=== PATIENT | female | born 1970 | race Hispanic/Latino ===

== ENCOUNTER 2017-08-05 17:26 | Emergency (ER) | payer SELFPAY ==
[~2017-08-05 17:26] MED LIST: AMIDATE IV ONE; VERSED IV ONE; ZEMURON IV ONE
[2017-08-05] MEDS ORDERED: KEPPRA 1,000 MG/NS 0.75% 100ML 1,000 MG/100 ML BAG IV ONE ×2 (17:30→20:23)
[2017-08-05] MEDS ORDERED: NACL 0.9% 1000 ML 1,000 ML ONE (17:30)
[2017-08-05] MEDS ORDERED: AMIDATE IV ONE (17:37)
[2017-08-05] MEDS ORDERED: VASELINE LIP THERAPY TP PRN (17:37)
[2017-08-05] MEDS ORDERED: ARTIFICIAL TEARS OPHTH OINT OU PRN (17:37)
[2017-08-05] MEDS ORDERED: XYLOCAINE CARDIAC IV ONE ×2 (17:37→19:40)
[2017-08-05] MEDS ORDERED: ZEMURON IV ONE (17:37)
[2017-08-05] MEDS ORDERED: KEPPRA 1,000 MG in NACL 0.9% 100 ML IV STA (17:37)
--- NOTE | 2017-08-05 17:39 | Emergency Department Report ---
ED Altered Mental Status HPI - General Chief Complaint: Altered Mental Status Stated Complaint: DIFFICULTY BREATHING Time Seen by Provider: 08/05/17 17:34 Source: EMS (verbal report received from EMS.ems notes not available at time of chart dictation), old records reviewed Mode of arrival: Stretcher Limitations: Altered Mental Status, Physical Limitation - History of Present Illness Initial Comments: This is a 46-year-old female who is previously unknown to this provider. History is entirely obtained from EMS. We do not know a past medical history she has. No family or friends were available for corroborating information. Her last known well time is not known. Apparently EMS was contacted for altered mental status and possible convulsive activity. The patient arrives to the ER altered, not protecting her airway, with decerebrate posturing, and was intubated for airway protection. Prior to intubation, she was placed on a nasal cannula, received bag valve mask ventilation, premedicated with 100 mg of lidocaine, introduced with 20 mg of etomidate, and paralyzed with 100 mg of rocuronium. Given undifferentiated altered mental status and concern for possible posterior circulation event, the patient was called overhead as a code stroke. A noncontrast CT scan of the brain was negative. A CT angiogram of the head and neck did not demonstrate any significant large vessel lesions that would require emergent endovascular intervention. Patient ruled in for systemic inflammatory response syndrome criteria by of heart rate greater than 90, white count of 16. Also had a low-grade temperature orally. In addition, a postintubation x-ray suggests pneumonia. Pneumonitis also a possibility. Therefore, the patient was emergently and administrative consented by myself for spinal tap. Patient also medicated with ceftriaxone, vancomycin and acyclovir. Decadron also ordered. Given concern for status epilepticus, meningitis, the patient will be transferred to [facility] for neuro critical care. This hospital does not have neurology, neurosurgery or neuro critical care. The patient has an emergency medical condition which cannot be definitively managed at this hospital. She will therefore be transferred for definitive care. There is no family available for consent for transfer, intubation or spinal tap. However, given the emergent nature of the patient's conditions, it is clear that diagnostics an transfer needed to performed in an expedient fashion in the patient's best interest. Given her last known well time is unknown, and broad differential diagnosis, as well as negative CT angiogram, the patient does not merit tPA. MD Complaint: altered mental status, confusion, decreased responsiveness -: unknown Severity: severe Associated Symptoms: other (the patient is altered, and nonverbal) - Related Data Allergies Allergy/AdvReac Type Severity Reaction Status Date / Time No Known Allergies Allergy Unverified 08/05/17 17:55 ED Review of Systems ROS: Stated complaint: DIFFICULTY BREATHING Other details as noted in HPI Comment: Unobtainable due to pts medical conditions ED Physical Exam - General Limitations: Altered Mental Status, Physical Limitation General appearance: obtunded - Head Head exam: Present: atraumatic, normocephalic - Eye Eye exam: Present: normal appearance. Absent: PERRL (the pupils are 2 mm bilaterally, they're not asymmetric and they are minimally reactive to light.) - ENT ENT exam: Present: normal orophraynx, mucous membranes moist - Neck Neck exam: Present: normal inspection. Absent: tenderness - Respiratory Respiratory exam: Absent: respiratory distress - Cardiovascular Cardiovascular Exam: Present: normal rhythm, tachycardia, normal heart sounds. Absent: systolic murmur, diastolic murmur, rubs, gallop - GI/Abdominal GI/Abdominal exam: Present: soft, normal bowel sounds. Absent: distended, tenderness, guarding, rebound, rigid, pulsatile mass - Rectal Rectal exam: Present: normal inspection - External exam: Present: normal external exam - Extremities Exam Extremities exam: Present: normal inspection. Absent: tenderness, pedal edema, joint swelling - Back Exam Back exam: Present: normal inspection. Absent: tenderness, CVA tenderness (R), paraspinal tenderness, vertebral tenderness - Neurological Exam Neurological exam: Present: altered, other (prior to intubation, the patient is moving 4 extremities. Patient also noted to have decerebrate posturing) - Psychiatric Psychiatric exam: Present: normal affect, normal mood - Skin Skin exam: Present: warm, dry, intact, normal color. Absent: rash - Assessment Assessment Interval: Baseline - Level of Consciousness 1a. Level of Consciousness: responds reflex/autonomic - LOC Questions 1b. LOC Questions: answers no questions correctly - LOC Command 1c. LOC Commands: performs no tasks correctly - Best Gaze 2. Best Gaze: forced deviation (Unable to assess) - Visual 3. Visual: bilateral hemianopia (Unable to assess) - Facial Palsy 4. Facial Palsy: complete paralysis (Unable to assess) - Motor Arm 5b. Motor Arm Right: some gravity effort 5a. Motor Arm Left: some gravity effort - Motor Leg 6a. Motor Leg Left: some gravity effort 6b. Motor Leg Right: some gravity effort - Limb Ataxia 7. Limb Ataxia: amputation (Unable to assess) - Sensory 8. Sensory: severe/total sensory loss (Unable to assess) - Best Language 9. Best Language: mute/global aphasia (Unable to assess) - Dysarthria 10. Dysarthria: intubated or other barrier - Extinction and Inattention 11. Extinction/Inattention: profound inattention ED Course Vital Signs 08/05/17 08/05/17 08/05/17 16:26 17:20 17:26 Temperature Pulse Rate 107 H Respiratory 16 13 16 Rate Blood Pressure 134/81 Blood Pressure [Left] O2 Sat by Pulse 100 Oximetry 08/05/17 08/05/17 08/05/17 17:30 17:36 17:45 Temperature Pulse Rate 111 H 114 H 104 H Respiratory 12 17 20 Rate Blood Pressure 134/81 167/107 Blood Pressure 174/110 [Left] O2 Sat by Pulse 100 100 100 Oximetry 08/05/17 08/05/17 08/05/17 17:47 18:00 18:02 Temperature Pulse Rate 104 H 111 H 115 H Respiratory 6 L 16 16 Rate Blood Pressure 134/81 167/107 Blood Pressure 154/94 [Left] O2 Sat by Pulse 87 100 100 Oximetry 08/05/17 08/05/17 08/05/17 18:06 18:10 18:15 Temperature Pulse Rate 115 H 119 H 113 H Respiratory 16 16 16 Rate Blood Pressure 167/107 167/107 174/110 Blood Pressure [Left] O2 Sat by Pulse 100 100 100 Oximetry 08/05/17 08/05/17 08/05/17 18:20 18:26 18:30 Temperature 99.2 F Pulse Rate 108 H 110 H 103 H Respiratory 16 16 16 Rate Blood Pressure 174/110 174/110 154/94 Blood Pressure 147/93 [Left] O2 Sat by Pulse 100 100 100 Oximetry 08/05/17 08/05/17 08/05/17 18:36 18:40 18:45 Temperature Pulse Rate 103 H 102 H 103 H Respiratory 16 16 16 Rate Blood Pressure 147/93 147/93 122/78 Blood Pressure [Left] O2 Sat by Pulse 98 98 98 Oximetry 08/05/17 08/05/17 08/05/17 18:50 18:56 19:00 Temperature Pulse Rate 101 H 101 H 101 H Respiratory 16 16 16 Rate Blood Pressure 122/78 122/78 122/78 Blood Pressure [Left] O2 Sat by Pulse 97 98 Oximetry 08/05/17 08/05/17 08/05/17 19:06 19:10 19:15 Temperature Pulse Rate 100 H 100 H 99 H Respiratory 16 16 16 Rate Blood Pressure 122/76 122/76 116/74 Blood Pressure [Left] O2 Sat by Pulse 98 98 98 Oximetry 08/05/17 08/05/17 08/05/17 19:20 19:26 19:30 Temperature Pulse Rate 99 H 98 H 97 H Respiratory 16 16 16 Rate Blood Pressure 116/74 116/74 116/74 Blood Pressure [Left] O2 Sat by Pulse 98 98 99 Oximetry 08/05/17 08/05/17 08/05/17 19:36 19:40 19:45 Temperature Pulse Rate 97 H 99 H 99 H Respiratory 16 16 16 Rate Blood Pressure 122/77 122/77 116/78 Blood Pressure [Left] O2 Sat by Pulse 99 99 99 Oximetry 08/05/17 08/05/17 08/05/17 19:50 19:56 20:00 Temperature Pulse Rate 96 H 111 H 101 H Respiratory 19 22 16 Rate Blood Pressure 116/78 122/78 100/59 Blood Pressure [Left] O2 Sat by Pulse 98 94 97 Oximetry 08/05/17 08/05/17 08/05/17 20:06 20:10 20:15 Temperature Pulse Rate 99 H 99 H 98 H Respiratory 16 16 16 Rate Blood Pressure 116/78 116/78 85/48 Blood Pressure [Left] O2 Sat by Pulse 98 98 98 Oximetry 08/05/17 08/05/17 08/05/17 20:20 20:26 20:29 Temperature Pulse Rate 95 H 93 H 91 H Respiratory 16 16 Rate Blood Pressure 85/48 85/48 Blood Pressure [Left] O2 Sat by Pulse 99 98 99 Oximetry - Intubation Time Out Performed: Yes Sedative: Etomidate Mg Given: 20 Paralytic: Rocuronium Mg Given: 100 Laryngoscope: Keyur Size: 3 ET Tube Size: 7.5 Tube Secured Location: teeth Tube Placement Confirmation: visualized tube passing t, equal breath sounds bilat, no breath sounds over epi, confirmation by capnometr Patient Tolerated Procedure: well Intubation Complications: none Additional Comments: Prior to intubation, placed on a nasal cannula at 15 L/m. The patient received [id number] ventilation. Endo tracheal tube is placed. - Lumbar Puncture Consent Obtained: emergent situation Time Out Performed: Yes Indication for Procedure: fever work up, change in mental status Patient Position: other (procedure started in right lateral decubitus position, unsuccessful, then transferred to sitting upright, leaning forward.) Skin Prep: Povidone-Iodine 1% Local Anesthetic Used: Lidocaine 1% Amount of anesthesia used (mls): 10 Spinal Needle Gauge: 20G Spinal Needle Length: 1.5in Interspace Used: L4-L5 Fluid Initially Obtained: cloudy Complications: traumatic tap, bleeding Patient Tolerated Procedure: well - Lab Data Result diagrams: 08/05/17 17:45 08/05/17 17:45 Lab Results 08/05/17 08/05/17 08/05/17 Range/Units 17:45 17:45 17:45 WBC 16.0 H (4.5-11.0) K/mm3 RBC 4.63 (3.65-5.03) M/mm3 Hgb 14.6 H (10.1-14.3) gm/dl Hct 44.7 H (30.3-42.9) % MCV 97 (79-97) fl MCH 32 (28-32) pg MCHC 33 (30-34) % RDW 13.1 L (13.2-15.2) % Plt Count 143 (140-440) K/mm3 Lymph % (Auto) 6.5 L (13.4-35.0) % Sanders % (Auto) 2.6 (0.0-7.3) % Eos % (Auto) 0.7 (0.0-4.3) % Baso % (Auto) 0.3 (0.0-1.8) % Lymph # 1.0 L (1.2-5.4) K/mm3 Sanders # 0.4 (0.0-0.8) K/mm3 Eos # 0.1 (0.0-0.4) K/mm3 Baso # 0.0 (0.0-0.1) K/mm3 Seg Neutrophils % 89.9 H (40.0-70.0) % Seg Neutrophils # 14.3 H (1.8-7.7) K/mm3 PT 13.4 (12.2-14.9) Sec. INR 0.97 (0.87-1.13) APTT 25.4 (24.2-36.6) Sec. Thrombin Time 15.0 L (15.1-19.6) Sec. Sodium (137-145) mmol/L Potassium (3.6-5.0) mmol/L Chloride (98-107) mmol/L Carbon Dioxide (22-30) mmol/L Anion Gap mmol/L BUN (7-17) mg/dL Creatinine (0.7-1.2) mg/dL Estimated GFR ml/min BUN/Creatinine Ratio % Glucose (65-100) mg/dL Calcium (8.4-10.2) mg/dL Total Bilirubin (0.1-1.2) mg/dL AST (5-40) units/L ALT (7-56) units/L Alkaline Phosphatase (35-129) units/L Total Creatine Kinase 272 H (30-135) units/L CK-MB (CK-2) 5.2 H (0.0-4.0) ng/mL CK-MB (CK-2) Rel Index 1.9 (0-4) Troponin T 0.032 H (0.00-0.029) ng/mL Total Protein (6.3-8.2) g/dL Albumin (3.9-5) g/dL Albumin/Globulin Ratio % Triglycerides 228 H (2-149) mg/dL Cholesterol 235 H (50-199) mg/dL LDL Cholesterol Direct 157 H (50-130) mg/dL HDL Cholesterol 63 H (40-59) mg/dL Cholesterol/HDL Ratio 3.73 % HCG, Quant (0-4) mIU/mL Urine Color (Yellow) Urine Turbidity (Clear) Urine pH (5.0-7.0) Ur Specific [place] (1.003-1.030) Urine Protein (Negative) mg/dL Urine Glucose (UA) (Negative) mg/dL Urine Ketones (Negative) mg/dL Urine Blood (Negative) Urine Nitrite (Negative) Urine Bilirubin (Negative) Urine Urobilinogen (<2.0) mg/dL Ur Leukocyte Esterase (Negative) Urine WBC (Auto) (0.0-6.0) /HPF Urine RBC (Auto) (0.0-6.0) /HPF Urine Bacteria (Auto) (Negative) /HPF Hyaline Casts /LPF Salicylates (2.8-20.0) mg/dL Acetaminophen (10.0-30.0) ug/mL Plasma/Serum Alcohol (0-0.07) % 08/05/17 08/05/17 08/05/17 Range/Units 17:45 17:45 17:45 WBC (4.5-11.0) K/mm3 RBC (3.65-5.03) M/mm3 Hgb (10.1-14.3) gm/dl Hct (30.3-42.9) % MCV (79-97) fl MCH (28-32) pg MCHC (30-34) % RDW (13.2-15.2) % Plt Count (140-440) K/mm3 Lymph % (Auto) (13.4-35.0) % Sanders % (Auto) (0.0-7.3) % Eos % (Auto) (0.0-4.3) % Baso % (Auto) (0.0-1.8) % Lymph # (1.2-5.4) K/mm3 Sanders # (0.0-0.8) K/mm3 Eos # (0.0-0.4) K/mm3 Baso # (0.0-0.1) K/mm3 Seg Neutrophils % (40.0-70.0) % Seg Neutrophils # (1.8-7.7) K/mm3 PT (12.2-14.9) Sec. INR (0.87-1.13) APTT (24.2-36.6) Sec. Thrombin Time (15.1-19.6) Sec. Sodium 137 (137-145) mmol/L Potassium 4.5 (3.6-5.0) mmol/L Chloride 91.8 L (98-107) mmol/L Carbon Dioxide 25 (22-30) mmol/L Anion Gap 25 mmol/L BUN 7 (7-17) mg/dL Creatinine 0.9 (0.7-1.2) mg/dL Estimated GFR > 60 ml/min BUN/Creatinine Ratio 8 % Glucose 438 H (65-100) mg/dL Calcium 8.5 (8.4-10.2) mg/dL Total Bilirubin 1.50 H (0.1-1.2) mg/dL AST 163 H (5-40) units/L ALT 140 H (7-56) units/L Alkaline Phosphatase 110 (35-129) units/L Total Creatine Kinase 271 H (30-135) units/L CK-MB (CK-2) (0.0-4.0) ng/mL CK-MB (CK-2) Rel Index (0-4) Troponin T (0.00-0.029) ng/mL Total Protein 7.3 (6.3-8.2) g/dL Albumin 4.6 (3.9-5) g/dL Albumin/Globulin Ratio 1.7 % Triglycerides (2-149) mg/dL Cholesterol (50-199) mg/dL LDL Cholesterol Direct (50-130) mg/dL HDL Cholesterol (40-59) mg/dL Cholesterol/HDL Ratio % HCG, Quant (0-4) mIU/mL Urine Color (Yellow) Urine Turbidity (Clear) Urine pH (5.0-7.0) Ur Specific [place] (1.003-1.030) Urine Protein (Negative) mg/dL Urine Glucose (UA) (Negative) mg/dL Urine Ketones (Negative) mg/dL Urine Blood (Negative) Urine Nitrite (Negative) Urine Bilirubin (Negative) Urine Urobilinogen (<2.0) mg/dL Ur Leukocyte Esterase (Negative) Urine WBC (Auto) (0.0-6.0) /HPF Urine RBC (Auto) (0.0-6.0) /HPF Urine Bacteria (Auto) (Negative) /HPF Hyaline Casts /LPF Salicylates (2.8-20.0) mg/dL Acetaminophen (10.0-30.0) ug/mL Plasma/Serum Alcohol < 0.01 (0-0.07) % 08/05/17 08/05/17 08/05/17 Range/Units 17:45 17:45 17:45 WBC (4.5-11.0) K/mm3 RBC (3.65-5.03) M/mm3 Hgb (10.1-14.3) gm/dl Hct (30.3-42.9) % MCV (79-97) fl MCH (28-32) pg MCHC (30-34) % RDW (13.2-15.2) % Plt Count (140-440) K/mm3 Lymph % (Auto) (13.4-35.0) % Sanders % (Auto) (0.0-7.3) % Eos % (Auto) (0.0-4.3) % Baso % (Auto) (0.0-1.8) % Lymph # (1.2-5.4) K/mm3 Sanders # (0.0-0.8) K/mm3 Eos # (0.0-0.4) K/mm3 Baso # (0.0-0.1) K/mm3 Seg Neutrophils % (40.0-70.0) % Seg Neutrophils # (1.8-7.7) K/mm3 PT (12.2-14.9) Sec. INR (0.87-1.13) APTT (24.2-36.6) Sec. Thrombin Time (15.1-19.6) Sec. Sodium (137-145) mmol/L Potassium (3.6-5.0) mmol/L Chloride (98-107) mmol/L Carbon Dioxide (22-30) mmol/L Anion Gap mmol/L BUN (7-17) mg/dL Creatinine (0.7-1.2) mg/dL Estimated GFR ml/min BUN/Creatinine Ratio % Glucose (65-100) mg/dL Calcium (8.4-10.2) mg/dL Total Bilirubin (0.1-1.2) mg/dL AST (5-40) units/L ALT (7-56) units/L Alkaline Phosphatase (35-129) units/L Total Creatine Kinase (30-135) units/L CK-MB (CK-2) (0.0-4.0) ng/mL CK-MB (CK-2) Rel Index (0-4) Troponin T (0.00-0.029) ng/mL Total Protein (6.3-8.2) g/dL Albumin (3.9-5) g/dL Albumin/Globulin Ratio % Triglycerides (2-149) mg/dL Cholesterol (50-199) mg/dL LDL Cholesterol Direct (50-130) mg/dL HDL Cholesterol (40-59) mg/dL Cholesterol/HDL Ratio % HCG, Quant < 2 (0-4) mIU/mL Urine Color (Yellow) Urine Turbidity (Clear) Urine pH (5.0-7.0) Ur Specific [place] (1.003-1.030) Urine Protein (Negative) mg/dL Urine Glucose (UA) (Negative) mg/dL Urine Ketones (Negative) mg/dL Urine Blood (Negative) Urine Nitrite (Negative) Urine Bilirubin (Negative) Urine Urobilinogen (<2.0) mg/dL Ur Leukocyte Esterase (Negative) Urine WBC (Auto) (0.0-6.0) /HPF Urine RBC (Auto) (0.0-6.0) /HPF Urine Bacteria (Auto) (Negative) /HPF Hyaline Casts /LPF Salicylates < 0.3 L (2.8-20.0) mg/dL Acetaminophen < 5.0 L (10.0-30.0) ug/mL Plasma/Serum Alcohol (0-0.07) % 05/25/18 Range/Units Unknown WBC (4.5-11.0) K/mm3 RBC (3.65-5.03) M/mm3 Hgb (10.1-14.3) gm/dl Hct (30.3-42.9) % MCV (79-97) fl MCH (28-32) pg MCHC (30-34) % RDW (13.2-15.2) % Plt Count (140-440) K/mm3 Lymph % (Auto) (13.4-35.0) % Sanders % (Auto) (0.0-7.3) % Eos % (Auto) (0.0-4.3) % Baso % (Auto) (0.0-1.8) % Lymph # (1.2-5.4) K/mm3 Sanders # (0.0-0.8) K/mm3 Eos # (0.0-0.4) K/mm3 Baso # (0.0-0.1) K/mm3 Seg Neutrophils % (40.0-70.0) % Seg Neutrophils # (1.8-7.7) K/mm3 PT (12.2-14.9) Sec. INR (0.87-1.13) APTT (24.2-36.6) Sec. Thrombin Time (15.1-19.6) Sec. Sodium (137-145) mmol/L Potassium (3.6-5.0) mmol/L Chloride (98-107) mmol/L Carbon Dioxide (22-30) mmol/L Anion Gap mmol/L BUN (7-17) mg/dL Creatinine (0.7-1.2) mg/dL Estimated GFR ml/min BUN/Creatinine Ratio % Glucose (65-100) mg/dL Calcium (8.4-10.2) mg/dL Total Bilirubin (0.1-1.2) mg/dL AST (5-40) units/L ALT (7-56) units/L Alkaline Phosphatase (35-129) units/L Total Creatine Kinase (30-135) units/L CK-MB (CK-2) (0.0-4.0) ng/mL CK-MB (CK-2) Rel Index (0-4) Troponin T (0.00-0.029) ng/mL Total Protein (6.3-8.2) g/dL Albumin (3.9-5) g/dL Albumin/Globulin Ratio % Triglycerides (2-149) mg/dL Cholesterol (50-199) mg/dL LDL Cholesterol Direct (50-130) mg/dL HDL Cholesterol (40-59) mg/dL Cholesterol/HDL Ratio % HCG, Quant (0-4) mIU/mL Urine Color Yellow (Yellow) Urine Turbidity Clear (Clear) Urine pH 5.0 (5.0-7.0) Ur Specific [place] 1.012 (1.003-1.030) Urine Protein <15 mg/dl (Negative) mg/dL Urine Glucose (UA) >=500 (Negative) mg/dL Urine Ketones Neg (Negative) mg/dL Urine Blood Sm (Negative) Urine Nitrite Neg (Negative) Urine Bilirubin Neg (Negative) Urine Urobilinogen < 2.0 (<2.0) mg/dL Ur Leukocyte Esterase Neg (Negative) Urine WBC (Auto) 2.0 (0.0-6.0) /HPF Urine RBC (Auto) 2.0 (0.0-6.0) /HPF Urine Bacteria (Auto) 1+ (Negative) /HPF Hyaline Casts 1 /LPF Salicylates (2.8-20.0) mg/dL Acetaminophen (10.0-30.0) ug/mL Plasma/Serum Alcohol (0-0.07) % - Radiology Data Radiology results: report reviewed, image reviewed Noncontrast CT scan of the brain is negative for acute disease. The CT angiogram of the head and neck demonstrates no large clots. X-ray of the chest demonstrates bilateral pneumonitis versus pneumonia with the endotracheal tube 1.3 cm from the matthew. The endotracheal tube was retracted 2 cm by respiratory therapy at my direction. - Core Measures Measure Exclusions: not indicated - NEXUS Criteria Focal neurological deficit present: No Midline spinal tenderness present: No Altered level of consciousness: Yes (no history of trauma) Intoxication present: No Distracting injury present: No NEXUS results: C-Spine cannot be cleared clinically by these results. Imaging is required. Critical Care Time: Yes Critical care time in (mins) excluding proc time.: 60 Critical care attestation.: If time is entered above; I have spent that time in minutes in the direct care of this critically ill patient, excluding procedure time. ED Disposition Clinical Impression: SIRS (systemic inflammatory response syndrome), Encephalopathy acute [id number] IP Is pt being admited?: No Does the pt Need Aspirin: No Condition: Critical Referrals: PRIMARY CARE, [Primary Care Provider] - 3-5 Days
[2017-08-05] MEDS ORDERED: NACL 0.9% 500 ML IV SCH (18:00)
[2017-08-05] MEDS ORDERED: VERSED IV NR (18:00)
[2017-08-05] MEDS ORDERED: fentaNYL DRIP Premix 2,000 MCG/100 ML BAG IV SCH (18:00)
[2017-08-05] MEDS ORDERED: DIPRIVAN 10 MG/ML 1,000 MG/100 ML BOTTLE IV SCH (18:00)
[2017-08-05 18:07] LABS: Basophils % (Auto) 0.3 % (0.0-1.8); Eosinophils # (Auto) 0.1 K/mm3 (0.0-0.4); Eosinophils % (Auto) 0.7 % (0.0-4.3); Hematocrit 44.7 % (30.3-42.9); Hemoglobin 14.6 gm/dl (10.1-14.3); Lymphocytes % (Auto) 6.5 % (13.4-35.0); Mean Corpuscular HGB Conc 33 % (30-34); Mean Corpuscular Hemoglobin 32 pg (28-32); Mean Corpuscular Volume 97 fl (79-97); Monocytes # (Auto) 0.4 K/mm3 (0.0-0.8); Monocytes % (Auto) 2.6 % (0.0-7.3); Platelet Count 143 K/mm3 (140-440); Red Blood Count 4.63 M/mm3 (3.65-5.03); Red Cell Distribution Width 13.1 % (13.2-15.2)
[2017-08-05 18:18] LABS: INR 0.97 (0.87-1.13)
[2017-08-05 18:19] LABS: Partial Thromboplastin Time 25.4 Sec. (24.2-36.6)
[2017-08-05 18:33] LABS: Alanine Aminotransferase 140 units/L (7-56); Albumin 4.6 g/dL (3.9-5); BUN/Creatinine Ratio 8; Blood Urea Nitrogen 7 mg/dL (7-17); Calcium 8.5 mg/dL (8.4-10.2); Hemolysis Index 19
[2017-08-05 18:50] LABS: Bacteria,Urine 1+ /HPF (Negative); Bilirubin,Urine NEG (Negative); Blood,Urine SM (Negative); Color,Urine Yellow (Yellow); Hyaline Casts,Urine 1 /LPF; Protein,Urine <15 mg/dL mg/dL (Negative); Urobilinogen,Urine < 2.0 mg/dL (<2.0)
[2017-08-05 18:52] LABS: Creatine Kinase MB 5.2 ng/mL (0.0-4.0)
[2017-08-05 19:52] LABS: Chol/HDL Ratio 3.73 %
[2017-08-05] MEDS ORDERED: VANCOMYCIN 1,750 MG in NACL 0.9% 500 ML 500 ML IV ONE (20:24)
[2017-08-05] MEDS ORDERED: NACL 0.9% 1000 ML IV ONE (20:24)
[2017-08-05] MEDS ORDERED: ZOVIRAX 800 MG in NACL 0.9% 100 ML IV STA (20:28)
[2017-08-05] MEDS ORDERED: XYLOCAINE 1% 20 mL INFILTRATI ONE (20:39)
--- NOTE | 2017-08-05 20:49 | XRay Report ---
FINAL REPORT EXAM: XR CHEST 1V AP HISTORY: ETT placement/ og tube TECHNIQUE: Supine portable chest x-ray was performed Comparison: None FINDINGS: Patient is intubated. Endotracheal tube tip projects within 1.3 centimeters of the matthew. Nasogastric tube is present with the tip in the distal gastric body/antrum. There is a defibrillator pad projecting over the majority of the right lung. There appear to be patchy bilateral right greater than left perihilar infiltrates and left lower lobe infiltrate. IMPRESSION: Endotracheal tube tip projects within 1.3 centimeters of the matthew. If there is any difficulty ventilating the patient, recommend retracting it 2-3 centimeters. Patchy bilateral infiltrates slightly obscured by defibrillator pad. Findings are called on 08/05/2017 at 1939 hours Eastern Standard time. Nasogastric tube is well located.
--- NOTE | 2017-08-05 20:49 | Cat Scan Report ---
FINAL REPORT EXAM: CT ANGIO HEAD HISTORY: stroke sx TECHNIQUE: Axial images were performed through the brain following IV contrast administration Comparison: CT brain earlier same day FINDINGS: Patient is intubated. There are secretions in the nasal vault. Bilateral vertebral arteries are codominant and join normally to form the basilar artery. Normal posterior branching. The distal cervical internal carotid arteries, cavernous, and supraclinoid carotid arteries have normal course and caliber. Normal anterior and middle cerebral arteries. No aneurysm identified. No stenosis or occlusion seen. Imaged dural venous sinuses are patent. Conjugate gaze. Orbital cones and apices are unremarkable. There are no blood products identified. IMPRESSION: Normal CT angiogram [place] [facility] [place]. No intracranial blood products identified.
--- NOTE | 2017-08-05 20:49 | Cat Scan Report ---
FINAL REPORT PROCEDURE: CT HEAD/BRAIN WO CON TECHNIQUE: Computerized tomography of the head was performed without contrast material. DLP 920.48. HISTORY: Stroke symptoms. COMPARISON: No prior studies are available for comparison. FINDINGS: Skull and scalp: Normal. Paranasal sinuses: Moderate rightward septal deviation. Left eliza bullosa. Minimal ethmoid sinus opacification. Nasopharyngeal secretions. Ventricles and subarachnoid spaces: Normal. Cerebrum: No evidence of hemorrhage, acute infarction or mass. Possible at least partial empty sella. Cerebellum and brainstem: No evidence of hemorrhage, acute infarction or mass. Vasculature: Normal. Comments: Endotracheal tube seen on [facility] image. IMPRESSION: No CT evidence of acute intracranial pathology. Possible at least partial empty sella. Recommend MRI for further characterization if there is continued clinical concern for superimposed acute process and to evaluate sella if patient has no contraindication to MRI. Endotracheal tube seen on [facility] hospital image. Nasopharyngeal secretions, likely related. Consider correlation with chest radiograph. Critical test stroke protocol res report finalized within 15 minutes of time from [place].
--- NOTE | 2017-08-05 20:49 | Cat Scan Report ---
FINAL REPORT PROCEDURE: CT ANGIO HEAD AND NECK TECHNIQUE: Computerized tomographic angiography of the head and neck was performed after the IV injection of iodinated nonionic contrast including image processing. The image data was postprocessed using 2-dimensional multiplanar reformatted (MPR) and 3-dimensional (MIP and/or volume rendered) techniques. HISTORY: Stroke symptoms. COMPARISON: CT of the brain dated same day and time. FINDINGS: Sinuses: Moderate rightward septal deviation. Left eliza bullosa. Minimal ethmoid sinus opacification. Nasopharyngeal secretions. Non vascular cervical structures: Normal. Cerebrum: No evidence of hemorrhage, acute ischemia or mass.. Partial empty sella. Cerebellum: No evidence of hemorrhage, acute ischemia or mass. Subarachnoid spaces and ventricles: Normal. Aortic arch: Normal. Pulmonary artery: Subtle low-attenuation about the main pulmonary artery (image 1 series 2). Left carotid artery: Atherosclerosis which is mildly irregular and calcification of the distal cervical carotid artery just proximal to the petrous portion, causing [id number] stenosis. Right carotid artery: Normal. Vertebral arteries: Normal. Intracranial arteries: There is a prominent vessel about left VTC TECHNICIAN. Aneurysms: None. Dural sinuses: Normal. Non vascular cervical structures: No significant abnormality . Other: Moderate bibasilar opacities. Endotracheal tube approaches the matthew. Scattered lymph nodes throughout the neck, ones in the submental region are enhancing. Mild degenerative changes of the cervical spine. IMPRESSION: Atherosclerosis which is mildly irregular and calcification about the distal cervical left carotid artery just proximal to the petrous portion, causing mild to moderate stenosis. Degree of stenosis likely between 50-70 percent. Prominent vessel about the left VTC TECHNICIAN, suggesting variant persistent anatomy or duplicated VTC TECHNICIAN. Partial empty sella. Sinusitis and nasopharyngeal secretions. Bibasilar opacities. Endotracheal tube approaches the matthew. Recommend correlation with chest radiograph. Scattered lymph nodes throughout the low back, ones in the submental region mildly enhancing. Recommend clinical correlation. Subtle low-attenuation about the main pulmonary artery, likely artifact. Limited evaluation of the pulmonary arteries. Consider CTA of the chest if there is concern for pulmonary embolism.
[2017-08-05] MEDS ORDERED: ROCEPHIN/NS 2 GM/100 ML 2 GM/100 ML BAG IV ONE (21:00)
[2017-08-05] MEDS ORDERED: cefTRIAXone 2 GM in NACL 0.9% 20 ML IV ONE (21:00)
[2017-08-05 22:07] LABS: Appearance,CSF Clear; Red Blood Cell,CSF 418 /mm3 (0-0); White Blood Cell,CSF 4 /mm3 (1-10)
[2017-08-05 22:32] LABS: Glucose,CSF 120 mg/dL
[2017-08-05 22:35] LABS: Basophils CSF 0 %
[2017-08-06 01:15] VITALS: BP 115/71
== END 2017-08-06 01:17 | disposition short-term general hospital (02) ==
LOC: ED 17:26
DX: R65.10 Systemic inflammatory response syndrome (SIRS) of non-infectious origin without acute organ dysfunction (principal); G93.49 Other encephalopathy
CPT/HCPCS: 31500; 36415; 51702; 62270; 70450; 70496; 70498; 71045; 80053; 80061; 81001; 82140; 82550; 82553; 82803; 82947; 84160; 84484; 84702; 85025; 85610; 85670; 85730; 86403; 86850; 86900; 86901; 87040; 87086; 87116; 89051; 96365; 96366; 96367; 96375; 99291; G0480; J0133; J0696; J1953; J2001; J2250; J2704; J3010; J3370; J7030; J7040; Q9967; 80320; 94002